=== PATIENT | male | born 1995 | race Two or more races ===

== ENCOUNTER 2017-01-27 12:09 | Emergency (ER) | payer SELFPAY ==
[2017-01-27 12:27] VITALS: BP 133/77; PULSE 86; RESP 18; TEMP 97.9; O2SAT 95
--- NOTE | 2017-01-27 12:53 | EDPHY ---
H & P Stated Complaint: COUGH AND CONGESTION FOR MUTLIPLE DAYS Time Seen by Provider: 01/27/17 12:44 HPI/ROS: Chief Complaint: Cough, congestion, ear pain HPI: 21-year-old male presenting with 1 week of cough, congestion, sore throat. Patient has developed right ear pain for the last few days. Some subjective fevers and chills at home. No nausea or vomiting. No chest pain or shortness of breath. Cough is dry nonproductive. Has not been taking any medicines for this. ROS: 10 point Review of Systems is negative except as noted in the HPI. PMH: Denies Social History: Recently quit smoking, occasional alcohol, no recreational drug use Family History: non-contributory Physical Exam: Gen: Awake, Alert, No Distress HEENT: Ears: Right tympanic membrane is markedly erythematous and bulging Nose: Diffuse clear rhinorrhea Eyes: PERRLA, EOMI Mouth: Moist mucosa Neck: Supple, no JVD Chest: nontender, lungs clear to auscultation Heart: S1, S2 normal, no murmur Abd: Soft, non-tender, no guarding Back: no CVA tenderness, no midline tenderness Ext: no edema, non-tender Skin: no rash Neuro: CN II-XII intact, Sensation grossly intact, Strength 5/5 in bilateral upper and lower extremities - Personal History Tetanus Vaccine Date: within 10 years - Medical/Surgical History Hx Asthma: No Hx Chronic Respiratory Disease: No Hx Diabetes: No Hx Cardiac Disease: No Hx Renal Disease: No Hx Cirrhosis: No Hx Alcoholism: No Hx HIV/AIDS: No Hx Splenectomy or Spleen Trauma: No Other PMH: denies - Social History Smoking Status: Current some day smoker Constitutional: Initial Vital Signs Temperature (C) 36.6 C 01/27/17 12:24 Heart Rate 86 01/27/17 12:24 Respiratory Rate 18 01/27/17 12:24 Blood Pressure 133/77 H 01/27/17 12:24 O2 Sat (%) 95 01/27/17 12:24 O2 Delivery Mode Room Air Allergies/Adverse Reactions: No Known Allergies Allergy (Verified 01/27/17 12:23) Home Medications: Medication Instructions Recorded Amoxicillin Trihydrate [Amoxil] 500 mg PO Q8H #30 cap 01/27/17 Medical Decision Making ED Course/Re-evaluation: 21-year-old with viral URI now has subsequently developed a right otitis media. Will start him on amoxicillin. Referred for outpatient follow-up. Departure - Departure Disposition: Home, Routine, Self-Care Clinical Impression: Viral upper respiratory illness, Otitis media Condition: Good Instructions: Upper Respiratory Infection (ED), Ear Infection (ED) Additional Instructions: Alternate acetaminophen (1000 mg) with ibuprofen (400 mg) every 4 hours as needed for fevers, chills, aches or pains. Please take her full course of antibiotics. Follow up with the primary care physician in 3-4 days if symptoms are not getting better. Referrals: [facility],. [Clinic] - As per Instructions Nikkie Burns MD [[facility] [place] - As per Instructions Prescriptions: Amoxicillin Trihydrate [Amoxil] 500 mg PO Q8H #30 cap
== END 2017-01-27 13:05 | disposition home or self-care (01) ==
LOC: CED 12:09
DX: J06.9 Acute upper respiratory infection, unspecified (principal); H66.91 Otitis media, unspecified, right ear; F17.200 Nicotine dependence, unspecified, uncomplicated